=== PATIENT | male | born 1960 | race Caucasian/White ===

== ENCOUNTER 2024-07-22 18:23 | Emergency (ER) | payer MEDICARE, MEDICAID, SELFPAY ==
[2024-07-22 18:43] VITALS: BP 114/70; PULSE 78; TEMP 36.6; O2SAT 99; BMI 25.1
[2024-07-22 18:53] VITALS: O2SAT 98
--- NOTE | 2024-07-22 18:57 | ED.URI1 ---
HPI - URI/Sore Throat General Chief Complaint: Upper Respiratory Infection Stated Complaint: HEADACHE, CHEST CONGESTION Time Seen by Provider: 07/22/24 18:41 Source: patient Limitations: no limitations History of Present Illness HPI Narrative: Patient is a 64-year-old male who presents to the emergency department for I am sick . He reports a 3-day history of generalized bodyaches and weakness associated with cough and congestion. He reports some soreness in the chest with coughing. He has had hot and cold chills with no objective fevers. Multiple family members are sick with similar and his significant other is also being evaluated for the same. No vomiting or diarrhea. Related Data Home Medications ?Medication ?Instructions ?Recorded ?Confirmed aspirin 81 mg tablet,delayed 81 mg PO DAILY 07/22/24 07/22/24 release (Adult Low Dose Aspirin) atorvastatin 80 mg tablet 80 mg PO .qhs 07/22/24 07/22/24 duloxetine 60 mg capsule,delayed 120 mg PO QDAY 07/22/24 07/22/24 release metoprolol succinate 25 mg 25 mg PO QDAY 07/22/24 07/22/24 tablet,extended release 24 hr omeprazole 40 mg capsule,delayed 40 mg PO QDAY 07/22/24 07/22/24 release ropinirole 1 mg tablet 1 mg PO QDAY PRN restless leg(s) 07/22/24 07/22/24 tramadol 50 mg tablet 100 mg PO Q4H PRN pain 07/22/24 07/22/24 Previous Rx's ?Medication ?Instructions ?Recorded albuterol sulfate 90 mcg/actuation 2 inh inhalation Q4H PRN shortness 07/22/24 aerosol inhaler of breath or wheezing #8.5 grams levofloxacin 750 mg tablet 750 mg PO DAILY 7 days #7 tabs 07/22/24 methylprednisolone 4 mg tablets in See Rx Instructions .Route 07/22/24 a dose pack (Medrol (Edil)) .COMPLEX #21 ea ondansetron 4 mg disintegrating 4 mg PO Q6H PRN nausea and 07/22/24 tablet vomiting #12 tabs Allergies Allergy/AdvReac Type Severity Reaction Status Date / Time No Known Drug Allergies Allergy Verified 07/22/24 18:39 Review of Systems ROS Constitutional Reports: chills; Denies: fever Ears, nose, mouth, and throat Reports: nasal congestion; Denies: throat pain Cardiovascular Reports: chest pain Respiratory Reports: cough; Denies: shortness of breath Gastrointestinal Denies: abdominal pain, nausea, vomiting or diarrhea Integumentary/Breast Denies: rash Neurological Reports: headache; Denies: numbness in extremities or weakness in extremities Hematologic/Lymphatic Denies: easy bruising or easy bleeding PFSH [facility] Social History Little interest or pleasure in doing things: not at all Feeling down, depressed, or hopeless: not at all Exam Narrative Exam Narrative: Gen.: Awake, alert, in no distress Head: Normocephalic, atraumatic ENT: Moist mucous membranes, TMs clear Respiratory: No respiratory distress, lungs clear bilaterally, no wheezing or rhonchi Cardio: Regular rate and rhythm Extremities: Moves extremities equally Psych: Normal mood and affect Neuro: No focal neuro deficit Skin: Warm, dry, intact Constitutional Vital Signs, click to edit/add: Last Vital Signs Temp 97.9 F 07/22/24 18:43 Pulse 78 07/22/24 18:43 Resp 18 07/22/24 18:43 BP 114/70 07/22/24 18:43 Pulse Ox 98 07/22/24 18:53 O2 Del Method Room Air 07/22/24 18:53 Course Vital Signs Vital signs: Vital Signs Temperature 97.9 F 07/22/24 18:43 Pulse Rate 78 07/22/24 18:43 Respiratory Rate 18 07/22/24 18:43 Blood Pressure 114/70 07/22/24 18:43 Pulse Oximetry 99 07/22/24 18:43 Oxygen Delivery Method Room Air 07/22/24 18:43 Temperature 97.9 F 07/22/24 18:43 Pulse Rate 78 07/22/24 18:43 Respiratory Rate 18 07/22/24 18:43 Blood Pressure 114/70 07/22/24 18:43 Pulse Oximetry 98 07/22/24 18:53 Oxygen Delivery Method Room Air 07/22/24 18:53 MDM - URI/Sore Throat MDM Narrative Medical decision making narrative: Respiratory swabs are negative, patient is hemodynamically stable with normal vital signs. Chest x-ray shows left lower lobe pneumonia. This was reviewed by attending physician as well. Patient will be placed on Levaquin, Medrol Dosepak, albuterol inhaler and Zofran as needed. He is well-hydrated and nontoxic in the ER. Follow-up PCP and return to the ER if symptoms change or worsen SHARED APC VISIT, PHYSICIAN ATTESTATION: [id number] I performed a substantive part of the MDM during the patient?s E/M visit. I personally evaluated and examined the patient. I personally made or approved the documented management plan and acknowledge its risk of complications. Medical Records Attestation: I reviewed the patient's medical records. Lab Data Attestation: I reviewed the patient's lab results. Labs: Lab Results 07/22/24 Range/Units 18:55 Influenza Type A Ag Negative Influenza Type B Ag Negative SARS-CoV-2 Ag (CV2AG) Negative (NEGATIVE) Imaging Data Chest x-ray: Attestation: I have reviewed the pertinent imaging results. Discharge Plan Discharge Chief Complaint: Upper Respiratory Infection Clinical Impression: Upper respiratory infection, Left lower lobe pneumonia Patient Disposition: Home, Self-Care Time of Disposition Decision: 19:54 Condition: Good Prescriptions / Home Meds: New levofloxacin 750 mg tablet 750 mg PO DAILY 7 Days Qty: 7 0RF methylprednisolone [Medrol (Edil)] 4 mg tablets,dose pack See Rx Instructions .ROUTE .COMPLEX Qty: 21 0RF Rx Instructions: Taper as directed albuterol sulfate 90 mcg/actuation HFA aerosol inhaler 2 inh inhalation Q4H PRN (Reason: shortness of breath or wheezing) Qty: 8.5 0RF ondansetron 4 mg tablet,disintegrating 4 mg PO Q6H PRN (Reason: nausea and vomiting) Qty: 12 0RF No Action tramadol 50 mg tablet 100 mg PO Q4H PRN (Reason: pain) atorvastatin 80 mg tablet 80 mg PO .qhs duloxetine 60 mg capsule,delayed release(DR/EC) 120 mg PO QDAY metoprolol succinate 25 mg tablet extended release 24 hr 25 mg PO QDAY omeprazole 40 mg capsule,delayed release(DR/EC) 40 mg PO QDAY ropinirole 1 mg tablet 1 mg PO QDAY PRN (Reason: restless leg(s)) aspirin [Adult Low Dose Aspirin] 81 mg tablet,delayed release (DR/EC) 81 mg PO DAILY Print Language: Persian Instructions: Upper Respiratory Infection (ED), Community Acquired Pneumonia (ED) Referrals: CAROLINE,LIZETH L [Primary Care Provider] - 1 week
[2024-07-22 19:20] LABS: Influenza Virus A Antigen Negative; Influenza Virus B Antigen Negative; Internal Control Within Normal Limits; SARS-CoV-2 Ag NEGATIVE (NEGATIVE)
[2024-07-22] MEDS: DEXAMETHASONE SOD PHOS 10 MG/ML VIAL PO (19:28)
[2024-07-22 20:05] VITALS: BP 133/77; PULSE 62; O2SAT 98
== END 2024-07-22 20:11 | disposition home or self-care (01) ==
PROVIDERS: Physician Assistant; Emergency Provider Emergency Medicine; PCP Nurse Practitioner
DX: J18.9 Pneumonia, unspecified organism (principal); R07.9 Chest pain, unspecified; J06.9 Acute upper respiratory infection, unspecified
CPT/HCPCS: 71045; 87804; 87811; 99284; J1100